=== PATIENT | female | born 1960 | race Hispanic/Latino ===

== ENCOUNTER 2019-04-25 08:05 | Emergency (ER) | payer OTHER ==
[2019-04-25 09:15] LABS: BASOPHILS % (AUTO) 0.8 % (0.0-5.0); EOSINOPHILS % (AUTO) 3.3 % (0.0-8.0); HEMATOCRIT 33.6 % (36-48); LYMPHOCYTES % (AUTO) 17.8 % (21.0-51.0); MEAN CORPUSCULAR HEMOGLOBIN 19.5 pg (27.0-33.0); MEAN CORPUSCULAR VOLUME 69.9 fL (79-99); NEUTROPHILS % (AUTO) 70.9 % (40.0-77.0); NUCLEATED RED BLOOD CELLS 0.5 % (0.0-0.19); PLATELET COUNT (AUTO) 288 K/uL (130-400); RED BLOOD CELL COUNT(AUTO) 4.81 MIL/uL (4.00-5.50); WHITE BLOOD COUNT (AUTO) 6.4 K/uL (4.8-10.8)
[2019-04-25 09:23] LABS: APPEARANCE,URINE Turbid (CLEAR); BILIRUBIN,URINE Negative (NEGATIVE); COLOR,URINE Yellow (YELLOW); GLUCOSE, URINE (UA) Negative (NEGATIVE); KETONES,URINE Negative (NEGATIVE); LEUKOCYTE ESTERASE ,URINE Large (NEGATIVE); NITRATE,URINE Positive (NEGATIVE); OCCULT BLOOD,URINE Moderate (NEGATIVE); PH,URINE 5.5 (5.0-8.0); PROTEIN,URINE POS 1+ mg/dL (NEGATIVE)
[2019-04-25 09:30] LABS: BACTERIA,URINE Many /HPF (None Seen); MUCUS,URINE Moderate LPF (None Seen); WBC,URINE >100 /HPF (0-1)
[2019-04-25 09:31] LABS: CREATININE 0.9 mg/dL (0.5-1.5); INR 0.95 (0.85-1.15); PARTIAL THROMBOPLASTIN TIME 22.4 SEC (26.3-35.5); POTASSIUM 3.8 mmol/L (3.5-5.1)
[2019-04-25 09:31] LABS: AMPHET/METH SCREEN,URINE NEGATIVE (NEGATIVE); BARBITURATE SCREEN, URINE NEGATIVE (NEGATIVE); BENZODIAZEPINES SCREEN,URINE NEGATIVE (NEGATIVE); CANNABINOID SCREEN,URINE NEGATIVE (NEGATIVE); COCAINE SCREEN,URINE NEGATIVE (NEGATIVE); OPIATE SCREEN,URINE NEGATIVE (NEGATIVE); PHENCYCLIDINE SCREEN,URINE NEGATIVE (NEGATIVE)
[2019-04-25 09:37] LABS: ALBUMIN 3.5 g/dL (3.5-5.0); BILIRUBIN,TOTAL 0.3 mg/dL (0.2-1.0); TOTAL PROTEIN, SERUM 7.8 g/dL (6.0-8.3)
[2019-04-25] MEDS ORDERED: CEFTRIAXONE SODIUM 500 MG VIAL ONE (10:35)
== END 2019-04-25 12:59 | disposition home or self-care (01) ==
LOC: EDH 08:05
DX: R55 Syncope and collapse (principal); D64.9 Anemia, unspecified; N39.0 Urinary tract infection, site not specified; S09.90XA Unspecified injury of head, initial encounter; E11.9 Type 2 diabetes mellitus without complications; Z90.49 Acquired absence of other specified parts of digestive tract; Z98.890 Other specified postprocedural states; X58.XXXA Exposure to other specified factors, initial encounter; Y93.89 Activity, other specified; Y92.098 Other place in other non-institutional residence as the place of occurrence of the external cause; Y99.8 Other external cause status
CPT/HCPCS: 36415; 70450; 71045; 80053; 80305; 81001; 82550; 84484 ×2; 85025; 85610; 85730; 87077; 87088; 87186; 93005 ×2; 96361; 96374; 99285; J0696

== ENCOUNTER 2021-10-19 12:11 | Emergency (ER) | payer BC, OTHER ==
[~2021-10-19] VITALS: Ht 152.4 cm; Wt 53.5 kg
[2021-10-19] MEDS ORDERED: IBUPROFEN 600 MG TABLET PO ONE (14:00)
[2021-10-19] MEDS ORDERED: MORPHINE 4 MG SYG IVP ONE (15:00)
[2021-10-19] MEDS ORDERED: ONDANSETRON 4MG INJ IVP ONE (15:00)
[2021-10-19] MEDS ORDERED: MORPHINE 4 MG SYG ONE (15:01)
[2021-10-19] MEDS ORDERED: IBUP-2070 PO (15:54)
[2021-10-19 16:06] VITALS: BP 115/69
== END 2021-10-19 16:08 | disposition home or self-care (01) ==
LOC: EDH 12:11
DX: S52.501A Unspecified fracture of the lower end of right radius, initial encounter for closed fracture (principal); S80.11XA Contusion of right lower leg, initial encounter; V49.49XA Driver injured in collision with other motor vehicles in traffic accident, initial encounter; Y93.89 Activity, other specified; Y92.413 State road as the place of occurrence of the external cause; Y99.8 Other external cause status
CPT/HCPCS: 29125; 73100; 73110; 73590; 96374; 99284; J2270

== ENCOUNTER → 2022-02-18 | Outpatient (CLI) | payer BC ==
[~2022-02-18] MED LIST: IBUP-2070 PO
== END | disposition home or self-care (01) ==
LOC: SHCH 08:28
PROVIDERS: ATTEND Internal Medicine Cardiovascular Disease
DX: R55 Syncope and collapse (principal); R00.2 Palpitations
CPT/HCPCS: 93306

== ENCOUNTER → 2022-03-04 | Outpatient (CLI) | payer OTHER | END | disposition home or self-care (01) | LOC: RAH 12:38 | PROVIDERS: ATTEND Internal Medicine Cardiovascular Disease | DX: Z13.6 Encounter for screening for cardiovascular disorders (principal); R93.1 Abnormal findings on diagnostic imaging of heart and coronary circulation; R91.8 Other nonspecific abnormal finding of lung field | CPT/HCPCS: 75571 ==